=== PATIENT | male | born 1960 | race Caucasian/White ===

== ENCOUNTER 2017-11-15 09:30 | Inpatient (IN) ==
[2017-11-27 14:38] LABS: Appearance,Urine CLEAR; Bilirubin,Urine NEG (NEG); Color,Urine YELLOW; Glucose,Urine (UA) NEGATIVE (NEG); Leukocyte Esterase,Urine NEG /uL (NEG); Protein,Urine NEG (NEG); Specific Gravity,Urine 1.012 (1.000-1.035); Urine Blood NEG mg/dL (<0.03); Urobilinogen,Urine NEG (NEG)
[2017-11-27 15:35] LABS: Basophils # (Auto) 0.1 K/mcL (0.0-0.3); Eosinophils # (Auto) 0.1 K/mcL (0.0-0.7); Eosinophils % (Auto) 2.3 % (0.0-7.0); Granulocytes % (Auto) 51.6 % (38.0-78.0); Lymphocytes # (Auto) 1.8 K/mcL (1.5-4.8); Lymphocytes % (Auto) 34.8 % (15.5-49.0); Mean Cell Volume 89.4 fL (80.0-100.0); Mean Corpuscular HGB Conc 35.7 g/dL (31.0-36.0); Mean Corpuscular Hemoglobin 31.9 pg (26.0-34.0); Monocytes # (Auto) 0.5 K/mcL (0.1-0.9); Monocytes % (Auto) 10.3 % (1.0-12.0); Platelet Count 170 K/mcL (140-440); RBC 5.03 M/mcL (4.50-5.90); Red Cell Distribution Width 12.1 % (11.5-14.5)
[2017-11-27 16:03] LABS: Blood Urea Nitrogen 7 mg/dl (6-20)
[2017-11-29] MEDS ORDERED: ceFAZolin 1 GM VIAL IV SCH (07:00)
[2017-11-29] MEDS ORDERED: 0.9 % SODIUM CHLORIDE 9 ML, KETOROLAC 30 MG, ROPIVACAINE HCL/PF 49.5 ML, EPINEPHrine 0.... IJ SCH (07:00)
[2017-11-29] MEDS ORDERED: LIDOCAINE HCL/PF 100 MG/5 ML SYRINGE IV ONE (11:05)
[2017-11-29] MEDS ORDERED: KETAMINE 100 MG/ML ML IV ONE (11:05)
[2017-11-29] MEDS ORDERED: PROPOFOL 200 MG/20 ML VIAL IV ONE (11:05)
[2017-11-29] MEDS ORDERED: GLYCOPYRROLATE 0.2 MG/ML VIAL IV ONE (11:05)
[2017-11-29] MEDS ORDERED: MIDAZOLAM 2 MG/2 ML VIAL IV ONE (11:05)
[2017-11-29] MEDS ORDERED: ROPIVACAINE HCL/PF 20 ML VIAL IJ ONE (11:05)
[2017-11-29] MEDS ORDERED: ONDANSETRON 4 MG/2 ML VIAL IV ONE (11:05)
[2017-11-29] MEDS ORDERED: DEXAMETHASONE 10 MG/ML VIAL IV ONE (11:05)
[2017-11-29] MEDS ORDERED: GENTAMICIN SULFATE 800 MG/20 ML VIAL IR ONE (11:54)
[2017-11-29] MEDS ORDERED: POLYETHYLENE GLYCOL 3350 17 GM PACKET PO PRN (12:44)
[2017-11-29] MEDS ORDERED: METHOCARBAMOL 1,000 MG/10 ML VIAL IV PRN ×2 (12:44→12:48)
[2017-11-29] MEDS ORDERED: BISACODYL 10 MG SUPP.RECT PR PRN (12:44)
[2017-11-29] MEDS ORDERED: FLEETS ADULT ENEMA PR PRN (12:44)
[2017-11-29] MEDS ORDERED: ONDANSETRON 4 MG/2 ML VIAL IV PRN ×2 (12:44→12:48)
[2017-11-29] MEDS ORDERED: MAGNESIUM HYDROXIDE 30 ML ORAL.SUSP PO PRN (12:44)
[2017-11-29] MEDS ORDERED: TRANEXAMIC ACID 1,000 MG/10 ML VIAL IV ONE (12:44)
[2017-11-29] MEDS ORDERED: BENZOCAINE/MENTHOL 1 LOZENGE PO PRN ×2 (12:44→12:48)
[2017-11-29] MEDS ORDERED: IPRATROPIUM/ALBUTEROL 3 ML AMPUL.NEB NEB PRN (12:48)
[2017-11-29] MEDS ORDERED: fentaNYL 100 MCG/2 ML VIAL IV PRN (12:48)
[2017-11-29] MEDS ORDERED: MEPERIDINE 25 MG/ML SYRINGE IV PRN (12:48)
[2017-11-29] MEDS ORDERED: ACETAMINOPHEN 1,000 MG/100 ML BOTTLE IV ONE (12:48)
[2017-11-29] MEDS ORDERED: NALOXONE HCL 0.4 MG/ML VIAL IV PRN (12:48)
[2017-11-29] MEDS ORDERED: FLUMAZENIL 0.1 MG/ML ML IV PRN (12:48)
[2017-11-29] MEDS ORDERED: LACTATED RINGERS 250 ML IV PRN (12:48)
--- NOTE | 2017-11-29 12:51 | Brief Operative Note ---
Date of procedure: 11/29/17 Pre-op diagnosis: DJD right knee Post-op diagnosis: same Procedure: right total knee replacement Grafts/Implants: Yes (Attune s+ PS sizes8/7, 41 mm patella, 7mm poly insert) Anesthesia: GETA Complications: none Surgeon: Braden Chavez Scrap Metal Processing Worker: Lisandro Encinas Estimated blood loss (cc): 250 Tourniquet Time (Minutes): 15 Specimens Removed/Pathology: none sent Condition: stable Disposition: PACU
[2017-11-29] MEDS ORDERED: LACTATED RINGERS 1,000 ML IV SCH (13:00)
--- NOTE | 2017-11-29 13:45 | XRay Report ---
HISTORY: Reason for Exam:Post-op total knee. FINDINGS: There is a well positioned total knee prosthesis. No fracture is present. Calcified plaques are present in the distal superficial femoral artery. IMPRESSION: Well-positioned right knee prosthesis Interpreted and Authenticated by: Simone Flores 11/29/17
--- NOTE | 2017-11-29 13:50 | Operative Note ---
DATE OF OPERATION: 11/29/2017 PREOPERATIVE DIAGNOSIS: Degenerative joint disease of the right knee. POSTOPERATIVE DIAGNOSIS: Degenerative joint disease of the right knee. OPERATION: Right total knee replacement. SURGEON: Braden Chavez M.D. [employer] SALES: Lisandro Encinas PA-C. ANESTHESIA: General done by Neri Fuller CRNA. ESTIMATED BLOOD LOSS: 250 mL. TOURNIQUET TIME: 15 minutes. SUMMARY OF PROCEDURE: General anesthesia was attained. The right leg was prepped and draped. The tourniquet was only used for cementation. A midline incision was made from the quadriceps to the tibial tubercle. It was taken down sharply to the medial retinaculum and quadriceps layer. The quadriceps was split longitudinally and the medial retinaculum was also split. The anterior aspect of the menisci were resected. The medial anterior soft tissue was released, including the pes anserinus. The MCL was preserved. The knee was bent. The ACL was released. The intramedullary canal of the femur was identified. It was then drilled and reamed. The distal femoral cutting guide was placed. A 9.5 mm resection was made. We then turned to the tibia. The intramedullary canal was opened with a drill and then reamed. The proximal cut was then sited with the guide system. The proximal cut was made. The lollipops were used to confirm insert size which was a 7 mm. The flexion-extension gaps were balanced. The femur was then cut. The cut was in 3 degrees of external rotation. The femur sized to an 8. The anterior, posterior and bevel cuts were made. The femur was moved posteriorly so as to have a flush cut anteriorly by 1.5 mm. The anterior, posterior, bevel, and notch cuts were made. The canal of the tibia was next prepared by reaming and broaching. The best combination of a full range of motion and balance and stability was with a 7 mm insert. Stability was checked in all directions in 0, 45 and 90 degrees of flexion. The patella was everted. Its depth was 27 mm. A resection of 10 mm of patella was done. The patella sized to a 41. The anchoring holes were drilled. The overhanging lateral facet was removed with a saw blade. The bone surfaces were thoroughly irrigated. Cement was applied to the bone surfaces, as well as to the prostheses. The components were all placed and impacted and the cementation was done under tourniquet control. Excess cement was removed after the cement had hardened. We were able to get full extension. The wound was thoroughly irrigated. The tourniquet was let down and total time was about 15 minutes. Hemostasis was attained. The quadriceps was closed using [id number] sutures of #2 FiberWire and a running 0 Maxon. The subcutaneous tissue was closed with interrupted 2-0 Monocryl. The skin was closed with Dura-Choi. A sterile compressive dressing was applied. The sponge and needle count was correct. The patient tolerated the procedure well and was taken to the recovery room in stable condition. TJF:arron Job ID: [id number] Doc ID: [id number] Braden Chavez MD
[2017-11-29] MEDS: 0.9 % SODIUM CHLORIDE 1,000 ML IV SCH ×2 (13:54→21:02)
[2017-11-29] MEDS: oxyCODONE HCL 5 MG TABLET PO PRN ×3 (15:32→22:39)
[2017-11-29] MEDS: 0.9 % SODIUM CHLORIDE 10 ML SYRINGE IV SCH ×3 (16:31→20:57)
[2017-11-29] MEDS: ceFAZolin 1 GM VIAL IV SCH (18:58)
[2017-11-29] MEDS: ASPIRIN 325 MG ENTERIC COATED TABLET PO SCH (20:51)
[2017-11-29] MEDS: oxyCODONE 10 MG TAB.ER.12H PO SCH (20:51)
[2017-11-29] MEDS: DOCUSATE SODIUM 100 MG CAPSULE PO SCH (20:51)
[2017-11-29] MEDS ORDERED: SENNOSIDES 1 TABLET PO SCH (21:00)
[2017-11-30] MEDS: ceFAZolin 1 GM VIAL IV SCH (02:21)
[2017-11-30] MEDS: oxyCODONE HCL 5 MG TABLET PO PRN ×2 (04:00→10:21)
[2017-11-30] MEDS: 0.9 % SODIUM CHLORIDE 10 ML SYRINGE IV SCH (05:45)
--- NOTE | 2017-11-30 07:45 | Discharge Summary ---
Ortho Discharge - TKA - Patient Instructions Diet: Regular Diet Activity: activity as tolerated, weight bearing as tolerated Total Knee Protocol: For Total Knee: Start ROM HECTOR with stationary bike or rocking chair. Work on gaining full extension of knee. Posterior dislocation precautions provided. Hip abductor strengthening and gait training instructions provided. Apply Cryocuff as instructed. Dressing Care: May shower in 2 days Additional Dressing Instructions: Leave dermabond in place - Follow Up Plan Disposition: Home, Self-Care Prognosis: Good Rehab Potential: Good Overall status at discharge: patient is progressing back to baseline - Orders For Discharge Prescriptions: Aspirin 325 mg PO BID 30 Days #60 tab oxyCODONE [Oxycontin] 10 mg PO Q4-6HP PRN #90 tab.er.12h PRN Reason: Pain
--- NOTE | 2017-11-30 07:51 | Orthopedic Progress Note ---
Subjective Patient information: Note initiated : 11/30/17 at 7:49 am Service Date, if different from initiated Date: [] Patient: David Nicholson 57 y/o M admitted on 11/29/17 for Right Total Knee Arthroplasty. Chief Complaint: [] Interval history: Patient is doing well and pain is controlled. He did well in PT this morning. No other acute complaints. Objective Vital signs: Vital Signs Temp Pulse Resp BP Pulse Ox 11/30/17 06:15 98.4 F 18 151/75 95 11/30/17 04:00 98.3 F 63 18 141/67 94 11/30/17 00:41 97.8 F 68 16 166/83 95 11/29/17 20:00 97.8 F 64 18 135/70 95 11/29/17 16:24 97.7 F 60 16 131/76 96 11/29/17 15:48 62 178/96 97 11/29/17 15:18 59 L 167/87 97 11/29/17 15:03 53 L 153/86 96 11/29/17 14:48 58 L 148/89 96 11/29/17 14:33 57 L 145/86 97 11/29/17 14:18 54 L 145/90 96 11/29/17 14:04 56 L 146/61 95 11/29/17 13:48 73 148/81 95 11/29/17 13:39 97.6 F 61 16 126/63 96 11/29/17 13:29 65 14 125/71 97 11/29/17 13:14 61 19 120/63 97 11/29/17 12:59 97.9 F 62 10 L 112/77 95 Intake and Output 11/29/17 11/30/17 11/30/17 21:59 05:59 13:59 Intake Total 2513 / 2513 1475 / 1475 800 / 800 Output Total 1300 / 1300 2500 / 2500 525 / 525 Balance 1213 / 1213 -1025 / -1025 275 / 275 Intake: IV 713 / 713 Sodium Chloride 0.9% 1,000 ml @ 713 / 713 100 mls/hr IV .Q10H [facility] Rx#: [id number] Oral 1800 / 1800 1475 / 1475 800 / 800 Output: Urine Catheter Amount 1000 / 1000 Straight 1000 / 1000 Void Amount 300 / 300 2500 / 2500 525 / 525 Other: Meal Dinner Percent of Meal Consumed 100% Weight 261 lb Intake & Output: Intake & Output 11/29/17 11/30/17 11/30/17 21:59 05:59 13:59 Intake Total 2513 / 2513 1475 / 1475 800 / 800 Output Total 1300 / 1300 2500 / 2500 525 / 525 Balance 1213 / 1213 -1025 / -1025 275 / 275 Weight 261 lb Intake: IV 713 / 713 Sodium Chloride 0.9% 1,000 ml @ 713 / 713 100 mls/hr IV .Q10H JOHN Rx#: [id number] Oral 1800 / 1800 1475 / 1475 800 / 800 Output: Urine Catheter Amount 1000 / 1000 Straight 1000 / 1000 Void Amount 300 / 300 2500 / 2500 525 / 525 Other: Meal Dinner Percent of Meal Consumed 100% Incision: Yes healing Incision clean and dry: Yes Weight bearing status: full Extremities exam IM: No calf tenderness, Yes normal inspection, Yes Foot pink and warm, Yes neurovascular intact - Labs CBC & BMP: 11/27/17 13:33 11/27/17 13:32 Labs: Orthopedic Labs 11/27/17 13:32 PT 13.4 INR 1.0 11/27/17 13:33 Hgb 16.0 Hct 45.0 Assessment and Plan (1) Status post total right knee replacement Patient wants to go home today Discharge with oxycodone for pain and aspirin bid for 30 days PT prescription Status: Acute
[2017-11-30] MEDS: oxyCODONE 10 MG TAB.ER.12H PO SCH (08:12)
[2017-11-30] MEDS: DOCUSATE SODIUM 100 MG CAPSULE PO SCH (08:12)
[2017-11-30] MEDS: ASPIRIN 325 MG ENTERIC COATED TABLET PO SCH (08:12)
[2017-11-30] MEDS: 0.9 % SODIUM CHLORIDE 1,000 ML IV SCH (11:05)
== END 2017-11-30 11:15 | disposition home or self-care (01) | DRG 470 ==
LOC: MEDSUR 11-29 06:50
PROVIDERS: ADMIT Orthopaedic Surgery Foot and Ankle Surgery; ATTEND Orthopaedic Surgery Foot and Ankle Surgery